=== PATIENT | male | born 1955 | race Caucasian/White ===

== ENCOUNTER 2024-08-24 13:47 | Outpatient (OUT) | payer MEDICARE, SELFPAY ==
[2024-08-24 14:19] LABS: Basophils Absolute Auto 0.1 10^3/uL (0.0-0.1); Basophils Percent Auto 0.5 % (0.2-2.0); Eosinophils Absolute Auto 0.2 10^3/uL (0.0-0.7); Eosinophils Percent Auto 1.8 % (0.9-7.0); Hematocrit 47.1 % (42.0-54.0); Hemoglobin 16.7 g/dL (14.0-18.0); Immature Granulocytes Abs Auto 0.03 10^3/uL (0.00-0.03); Immature Granulocytes Pct Auto 0.3 % (0.0-0.5); Lymphocytes Absolute Auto 1.7 10^3/uL (1.2-3.8); Lymphocytes Percent Auto 18.5 % (20.5-60.0); Mean Corpuscular HGB Conc 35.5 g/dL (29.9-35.2); Mean Corpuscular Hemoglobin 31.5 pg (25.9-34.0); Mean Corpuscular Volume 88.9 fL (80.0-94.0); Mean Platelet Volume 8.5 fL (9.5-13.5); Monocytes Absolute Auto 0.5 10^3/uL (0.3-0.8); Monocytes Percent Auto 5.7 % (1.7-12.0); Neutrophils Absolute Auto 6.9 10^3/uL (1.4-6.5); Neutrophils Percent Auto 73.2 % (43.0-75.0); Platelet Count 195 10^3/uL (150-450); Red Cell Distribution Width 13.2 % (11.0-15.0); White Blood Count 9.4 10^3/uL (4.0-11.0)
[2024-08-24 14:21] LABS: Estimated Average Glucose 160 mg/dL; Glycohemoglobin A1C 7.2 % (4.5-6.2)
[2024-08-24 14:38] LABS: Alanine Aminotransferase 20 U/L (16-63); Albumin Globulin Ratio 1.2; Albumin Level 3.8 g/dL (3.4-5.0); Alkaline Phosphatase 98 U/L (46-116); Anion Gap 11.1; Aspartate Amino Transferase 15 U/L (15-37); BUN Creatinine Ratio 9.3; Bilirubin Total 1.5 mg/dL (0.2-1.0); Calcium 9.1 mg/dL (8.5-10.1); Carbon Dioxide 30.7 mmol/L (21.0-32.0); Chloride 101 mmol/L (98-107); Chol HDL Ratio 3.3; Cholesterol 145 mg/dL (<=200); Estimated GFR (African America >60 (>=60 mL/min/1.73m^2); Estimated GFR (Non-African Ame 50 (>=60 mL/min/1.73m^2); Free T3 2.56 pg/mL (2.18-3.98); Globulin 3.1 g/dL; Glucose 115 mg/dL (74-106); HDL Cholesterol 44 mg/dL (40-60); Potassium 3.8 mmol/L (3.5-5.1); Sodium 139 mmol/L (136-145); Thyroid Stimulating Hormone 1.288 uIU/mL (0.358-3.740); Total Protein 6.9 g/dL (6.4-8.2); Triglycerides 90 mg/dL (<=150)
[2024-08-24 15:19] LABS: Prostate Specific Antigen Scrn 4.36 ng/mL (<=4.00)
== END 2024-08-24 13:48 | disposition home or self-care (01) ==
LOC: LAB 13:51
PROVIDERS: PCP Family Medicine; Visit Provider Family Medicine
DX: E78.00 Pure hypercholesterolemia, unspecified (principal); I10 Essential (primary) hypertension; E11.9 Type 2 diabetes mellitus without complications; R60.9 Edema, unspecified; Z12.5 Encounter for screening for malignant neoplasm of prostate
CPT/HCPCS: 36415; 80053; 80061; 83036; 84436; 84443; 84481; 85025; G0103

== ENCOUNTER 2025-06-01 08:04 | Outpatient (OUT) | payer MEDICARE, SELFPAY ==
--- OUTSIDE RECORDS SUMMARY | 2025-05-31 08:00 | XMS_ITS ---
Author Organization [facility] in [place] Address [address] [place] [address] Care Team Providers Care Animal Nutritionist Name Role Phone Natanael Nielsen Primary Care Provider [phone] Allergies No Known Allergies REASON FOR VISIT 3 month f/u Medications Medication SIG (Take, Route, Frequency, Duration) Notes Start Date End Date Status Metoprolol Tartrate 25 MG 1 tablet with food Orally Twice a day; Duration: 90 days 5ActiveAtorvastatin Calcium 40 MG1 tablet Orally at bedtime; Duration: 90 days5ActivehydroCHLOROthiazide 25 MG1 tablet Orally every morning; Duration: 90 days5ActiveGlucose Meter Test -Use strip with meter In Vitro to test blood sugar daily DX: E11.9; Duration: 90 days5Active Glucose Meter check blood sugar daily; Duration: 365 days dx E11.9 5ActivemetFORMIN HCl 1000 MG1 tablet with a meal Orally twice daily; Duration: 90 days5ActiveLosartan Potassium 50 MG1 tablet Orally Once a day; Duration: 90 days5ActiveLancets 33G -Use to test blood sugars once a day- DX: e11.9; Duration: 90 days5Active Social History Tobacco Use: Social History Observation Description Date Details (start date - stop date) Current Smoker 07/29/1971 - NA Tobacco Control (Standard) Question Answer Notes Tobacco use: Current smoker When did you start smoking?07/29/1971How often do you smoke cigarettes?Some days, but not every dayHow many cigarettes a day do you smoke?5 or less Additional Findings: Tobacco userCigar smokerSection Notes: Occasional Cigar smoker Vital Signs Weight 251.4 lbs 05/31/2025 Height 67 in 05/31/2025 Blood pressure systolic 138 mm Hg 05/31/20 25 Blood pressure diastolic 80 mm Hg 025 BMI 39.37 kg/m2 05/31/2025 Encounters Encounter Location Date Provider Diagnosis [facility] [address] [facility] [place] [address] 05/31/2025 Natanael Nielsen Hypertension I10 ; Diabetes mellitus E11.9 and Edema R60.9 Assessments Encounter Date Diagnosis (ICD Code) Assessment Notes Treatment Notes Treatment Clinical Notes Section Notes 05/31/2025 Hypertension (ICD-10 - I10) 05/31/2025Diabetes mellitus (ICD-10 - E11.9)05/31/2025Edema (ICD-10 - R60.9) Plan Of Treatment Pending Test Test Name Order Date HEMOGLOBIN A1C (GLYCO) 05/31/2025 LIPID PANEL (CHOL/TRIG/HDL/LDL) 05/31/20 25 URIC ACID 05/31/2025 THYROID PANEL (T4/TSH/FREE T3) PSA, SCREENING 05/31/2025 CMP (COMP MET LANE) w/eGFR CKD-EPI 2024 CBC WITH DIFF 05/31/2025 Progress Notes * MAR GUZMANOB:1955 (69 yo M)Acc No.[id number]:05/31/2025 UNLOCKED PROGRESS NOTE Progress Note Patient: JESSICA HARRELL :?Celso Nielsen ([facility]), MDDOB:1955???Age: 69 Y???Sex:MaleDate:05/31/2025Phone:[phone]:[address] [facility], [address], [place], [id number] In:12:59 PM ESTCheck Out:01:16 PM EST Subjective: * Chief Complaints: * 1 . 3 month f/u. * HPI: ???General:? DM - Sugar running 100's - disucssed diet HTN - stabel on meds Edema astable disc usedd flu vaccine. ???Interim History:? Patient presents for high blood pressure check. Doing well on medication. Denies chest pain, palpitations, lightheadedness, or vision changes. * ROS: ???General/Constitutional:?Lightheadedness?denies.?Fever?denies.?Headache?denies.?Cardiovascular:?Chest pain?denies.?Palpitations?denies.?Respiratory:?Cough?denies.?Shortness of breath?denies.? * Medical History: H ypertension, Hypercholesteremia. * Surgical History: M eniscus Repair- Right knee , Ganglion right wrist . * Hospitalization/Major Diagno stic Procedure: C ellulitis- Left lower extremity . * Family History: F ather: , Liver Cancer, diagnosed with Cancer. M other: . B rother(s): Arthritis. 2 brother(s) - healthy. . Father when patient was 8. * Social History: ???Tobacco Use:?Tobacco Control (Standard)?Tobacco use:?Current smoker ?When did you start smoking??07/29/1971 ?How often do you smoke cigarettes??Some days, but not every day ?How many cigarettes a day do you smoke??5 or less ?Additional Findings: Tobacco user?Cigar smoker ???Occasional Cigar smoker. * Medications: T aking Atorvastatin Calcium 40 MG Tablet 1 tablet Orally at bedtime , Taking Glucose Meter check blood sugar daily dx E11.9, Taking Glucose Meter Test(Glucose Blood) - Strip Use strip with meter In Vitro to test blood sugar daily DX: E11.9 , Taking hydroCHLOROthiazide 25 MG Tablet 1 tablet Orally every morning , Taking Lancets 33G(Lancets) - Miscellaneous Use to test blood sugars once a day- DX: e11.9 , Taking Losartan Potassium 50 MG Tablet 1 tablet Orally Once a day , Taking metFORMIN HCl 1000 MG Tablet 1 tablet with a meal Orally twice daily , Taking Metoprolol Tartrate 25 MG Tablet 1 tablet with food Orally Twice a day , Medication List reviewed and reconciled with the patient * Allergies: N .K.D.A. Objective: * Vitals: W t:251.4lbs, Ht: 67 in, BP:138/80mm Hg, BMI:39.37Index, Ht-cm: 170.18 cm, Wt-k.03 kg. * Examination: ???General Examination: ?GENERAL APPEARANCE:? in no acute distress, well developed,well nourished.?LUNGS:? clear to auscultation bilaterally.?CARDIO:? regular rate and rhythm, S1, S2 normal, no murmurs.? Assessment: * Assessment: 1.?Hypertension - I10 (Primary)???2.?Diabetes mellitus - E11.9?? 3.?Edema - R60.9??? Plan: * Treatment: ?LAB: HEMOGLOBIN A1C (GLYCO) ?LAB: LIPID PANEL (CHOL/TRIG/HDL/LDL) ?LAB: URIC ACID ?LAB: THYROID PANEL (T4/TSH/FREE T3) ?LAB: PSA, SCREENING ?LAB: CMP (COMP MET LANE) w/eGFR CKD-EPI ?LAB: CBC WITH DIFF2.?Diabetes mellitus?LAB: HEMOGLOBIN A1C (GLYCO) ?LAB: LIPID PANEL (CHOL/TRIG/HDL/LDL) ?LAB: URIC ACID ?LAB: THYROID PANEL (T4/TSH/FREE T3) ?LAB: PSA, SCREENING ?LAB: CMP (COMP MET LANE) w/eGFR CKD-EPI ?LAB: CBC WITH DIFF3.?Edema?LAB: HEMOGLOBIN A1C (GLYCO) ?LAB: LIPID PANEL (CHOL/TRIG/HDL/LDL) ?LAB: URIC ACID ?LAB: THYROID PANEL (T4/TSH/FREE T3) ?LAB: PSA, SCREENING ?LAB: CMP (COMP MET LANE) w/eGFR CKD-EPI ?LAB: CBC WITH DIFF * Preventive Medicine: ??Screenings/Counseling:?BMI ACTION PLAN?Above Normal BMI Follow-up?Dietary management education, guidance, and counseling * * Electronic signature of Natanael Nielsen MD, [phone] on 06/01/2025 at 08:10 AM EST Sign off status: PendingVisit Status:?CHK (Check Out) * Provider: Jesus Nielsen (TTC)MD Date: 1 08/01/2024 Generated for Printing/Faxing/eTransmitting on:?06/01/2025 08:10 AM EST History and Physical Notes * HPI (History of Present Illness) CategorySub-CategoryDetailNotesCategory NotesGeneral DM - Sugar running 100's - disucssed diet HTN - stabel on meds Edema astable disc usedd flu vaccine Examination CategorySub-CategoryDetailNotesCategory NotesGeneral ExaminationGENERAL APPEARANCE:in no acute distress, well developed, well nourishedCARDIO:regular rate and rhythm, S1, S2 normal, no murmursLUNGS:clear to auscultation bilaterally
--- OUTSIDE RECORDS SUMMARY | 2025-06-01 08:10 | XMS_ITS | Patient Health Record ---
Author Organization [facility] in [place] Address [address] [place] [address] Care Team Providers Care Swift Tender Name Role Phone Natanael Nielsen Primary Care Provider Allergies No Known Allergies Reason For Referral No Information Medications Medication SIG (Take, Route, Frequency, Duration) Notes Start Date End Date Status Metoprolol Tartrate 25 MG 1 tablet with food Orally Twice a day; Duration: 90 days 5ActivemetFORMIN HCl 1000 MG1 tablet with a meal Orally twice daily; Duration: 90 days5ActiveLosartan Potassium 50 MG1 tablet Orally Once a day; Duration: 90 days5ActiveLancets 33G -Use to test blood sugars once a day- DX: e11.9; Duration: 90 days5ActiveAtorvastatin Calcium 40 MG1 tablet Orally at bedtime; Duration: 90 days5ActivehydroCHLOROthiazide 25 MG1 tablet Orally every morning; Duration: 90 days5ActiveGlucose Meter Test -Use strip with meter In Vitro to test blood sugar daily DX: E11.9; Duration: 90 days5ActiveGlucose Meter check blood sugar daily; Duration: 365 days dx E11.9 5Active Social History Tobacco Use: Social History Observation Description Date Details (start date - stop date) Current Smoker 07/29/1971 - NA Tobacco Control (Standard) Question Answer Notes Tobacco use: Current smoker When did you start smoking?07/29/1971How often do you smoke cigarettes?Some days, but not every dayHow many cigarettes a day do you smoke?5 or less Additional Findings: Tobacco userCigar smokerAUDIT-C (Standard) Question Answer Notes Did you have a drink containing alcohol in the p ast year? No Bsemlv1TfwterpmdcgnbfHodncjuqXjlmrqq Notes: Occasional Cigar smoker Occasional Cigar smoker Occasional Cigar smoker Occasional Cigar smoker Problems Problem Type SNOMED Code ICD Code Onset Dates Problem Status W/U Status Risk Notes Problem Morbid obesity (disorder) (23331 6002) Morbid (severe) obesity due to excess calories (E66.01) ActiveconfirmedProblemHypertension (95973865)Hypertension (I10)Activeconfirmed ProblemEdema (75574246)Edema (R60.9)ActiveconfirmedProblemEssential tremor (964968707)Familial tremor (G25.0)ActiveconfirmedProblemhypercholesterolemia (disorder) (31229110)Hypercholesteremia (E78.00)ActiveconfirmedProblemDiabetes mellitus (52408002)Diabetes mellitus (E11.9)Activeconfirmed Vital Signs Blood pressure diastolic 80 mm Hg 05/31/2025 Pwkwts26 in05/31/2025lood pressure porgqkgw826 mm Hg05/31/20255188Ftfhfq994.4 lbs 05/31/2025BMI39.37 kg/m205/31/2025 Encounters Encounter Location Date Provider Diagnosis [address] [address] 08/24/2024 Natanael Hoy Hypercholesteremia E 78.00 ; Hypertension I10 ; Diabetes mellitus E11.9 and Edema R60.[address] [address] 11/22/2024 Natanael Hoy Hypertension I10 ; Hypercholesteremia E78.00 ; Diabetes mellitus E11.9 ; Edema R60.9 and Familial tremor G25.[address] [address] 02/21/2025 Natanael Hoy Morbid (severe) obes ity due to excess calories E66.01 ; Hypertension I10 ; Hypercholesteremia E78.00 and Diabetes mellitus E11.[address] [address] 05/31/2025 Natanael Hoy Hypertension I10 ; D iabetes mellitus E11.9 and Edema R60.[address] [place] [address] 08/24/2024 Natanael Nielsen Hypercholesteremia E 78.00 and Diabetes mellitus E11.9 [facility] [address] [place] [address] 08/31/2024 Natanael Palaciosy [facility] [place] [address] 12/15/2024[facility]Di[facility] [place] [address]/24/2025Doug HoyDiabetes mellitus E11.9 [facility] [place] [address] 12/21/2024Doug HoyDiabetes mellitus E11.9 Assessments Encounter Date Diagnosis (ICD Code) Assessment Notes Treatment Notes Treatment Clinical Notes Section Notes 08/24/2024 Hypercholesteremia (ICD-10 - E78 .00) 08/24/2024Hypertension (ICD-10 - I10)11/22/2024Hypertension (ICD-10 - I10) workign on salt and emhmxahe58/28/2025Hypercholesteremia (ICD-10 - E78.00)no Se from ssfhld9702/21/2025Morbid (severe) obesity due to excess calories (ICD-10 - E66.01)working on diet02/21/2025Hypertension (ICD-10 - I10)stabel - at home - 05/31/2025Hypertension (ICD-10 - I10)05/31/2025Diabetes mellitus (ICD-10 - E11.9)08/24/2024Hypercholesteremia (ICD-10 - E78.00)12/15/2024Diabetes mellitus (ICD-10 - E11.9)2024Diabetes mellitus (ICD-10 - E11.9)12/21/2024Diabetes mellitus (ICD-10 - E11.9)08/24/2024Diabetes mellitus (ICD-10 - E11.9)05/31/2025 Edema (ICD-10 - R60.9)02/21/2025Hypercholesteremia (ICD-10 - E78.00)no SE from meds11/22/2024Diabetes mellitus (ICD-10 - E11.9)will start eqyzhmst17/27/2025 Diabetes mellitus (ICD-10 - E11.9)08/24/2024Edema (ICD-10 - R60.9)11/22/2024 Edema (ICD-10 - R60.9)comression hose jpxywyn2202/21/2025Diabetes mellitus (ICD-10 - E11.9)110's011/22/2024Familial tremor (ICD-10 - G25.0) Plan Of Treatment Pending Test Test Name Order Date HEMOGLOBIN A1C (GLYCO) 05/31/2025 HEMOGLOBIN A1C (GLYCO) 08/24/2024 LIPID PANEL (CHOL/TRIG/HDL/LDL) 05/31/20 25 LIPID PANEL (CHOL/TRIG/HDL/LDL) 08/24/19 25 CBC WITH DIFF (EXP 04/2025) 08/24/2024 URIC ACID 05/31/2025 THYROID PANEL (T4/TSH/FREE T3) 5 THYROID PANEL (T4/TSH/FREE T3) PSA, SCREENING 08/24/2024 PSA, SCREENING 05/31/2025 CMP (COMP MET LANE) w/eGFR CKD-EPI 2024 CMP (COMP MET LANE) w/eGFR CKD-EPI 2024 CBC WITH DIFF 05/31/2025 Insurance Providers Payer Name Payer Address Payer Phone Subscriber Number Group Number Insured Name Patient Relationship to Insured Coverage Start Date Coverage End Date [employer] MED[employer] [address] [place], [place] [id number] Halie GUZMAN - patient is the insured Medical (General) History Medical History History ICD Code Hypertension I10 Hypercholesteremia E78.00 Surgical History Surgery Date(Month/Year) Ganglion right wrist Meniscus Repair- Right kneeHospitalization History Reason Date(Month/Year) Cellulitis- Left lower extremity
--- OUTSIDE RECORDS SUMMARY | 2025-06-01 08:10 | XMS_ITS | Clinical Summary ---
Author Organization [facility] Address [address] [facility] [place] [address] Care Team Providers Care Sole Conditioner Name Role Phone Unavailable Primary Care Provider Unavailabl e Allergies No known active allergies Medications MedicationSigDispense QuantityRefillsLast FilledStart DateEnd DateStatus atorvastatin (Lipitor) 40 MG tablet TAKE 1 TABLET BY MOUTH EVERY DAY AT BEDTIME FOR 90 DAYSActive hydroCHLOROthiazide (HYDRODiuril) 25 MG tablet Take 25 mg by mouth in the morning.Active losartan (Cozaar) 50 MG tablet 1 (one) time each day at the same time5Active metoprolol tartrate (Lopressor) 25 MG tablet TAKE 1 TABLET BY MOUTH TWICE A DAY WITH FOOD FOR 90 DAYSActive Noqygdtbbff-Vegvgljm-Xxvvzxraa 1-0.5-0.075 % solution Indications:Age-related nuclear cataract of left eyeAdminister 1 drop into affected eye(s) in the morning and 1 drop at noon and 1 drop in the evening and 1 drop before bedtime. 10 mL 5Active metFORMIN (Glucophage) 1000 MG tablet 1 tablet with a meal Orally twice daily; Duration: 90 days5Active Active Problems ProblemNoted DateDiagnosed BjayFdrxumrkemze56/19/2025Right posterior capsular vimnbqfupkjea57/30/2025 Resolved Problems ProblemNoted DateDiagnosed DateResolved DateAge-related nuclear cataract of left eye Encounters DateTypeDepartmentCare XukuYahppqekdgd50/19/2025 3:00 PM ESTOffice Visit [facility] [address] [place] [address] Felipe Wincehster, DO Pseudophakia (Primary Dx)05/16/20251138Kmnlcl10/03/2025Orders Only [facility] [address] [place] [address] Felipe Winchester DO Age-related nuclear cataract of both eyes04/26/2025 3:00 PM EDTOffice Visit [facility] [address] [place] [address] Felipe Winchester DO Age-related nuclear cataract of left eye (Primary Dx); Right posterior capsular lbdabzsxdzdak04/30/2025amboo flowsheet [facility] [address] [place] [address] Felipe Winchester DO 04/26/2025Travelfrom Last 3 Months Social History Tobacco UseTypesPacks/DayYears UsedDateSmoking Tobacco: NeverSmokeless Tobacco: Never Tobacco Cessation:Counseling Given: Not Answered Sex and Gender InformationValueDate RecordedSex Assigned at BirthNot on file Legal DulRswq6309/09/2022 6:48 PM EDTGender IdentityNot on fileSexual Orientation Not on file Plan of Treatment Health MaintenanceDue DateLast DoneCommentsCT Rryamjbjrsqv50/24/1954Colonoscopy 1955olorectal Cancer Fqmjdxxlt31/24/1954FIT-DNA1955FIT1955 FOBT1955 6759Audxbimzhhphl77/24/1954OVID-19 Vaccine ( season) , 11/11/2020, 10/21/2020Influenza VaccineCompleted 02/22/2025, 03/07/2024, 03/09/2023, Additional history existsPneumococcal Vaccine: 65+ EvhlqIlptfgnxp14/28/2025, 03/03/2020 Procedures Procedure NamePriorityDate/TimeAssociated DiagnosisCommentsIOL BIOMETRY - OU - BOTH DMZIWcvucpg41/30/2025 3:18 PM EDT Age-related nuclear cataract of left eye from Last 3 Months Results * IOL Biometry - OU - Both Eyes (CPT 03583) (04/26/2025 3:18 PM EDT)Anatomical RegionLateralityModalityHeadOtherSpecimen (Source)Anatomical Location / LateralityCollection Method / VolumeCollection TimeReceived Time Narrative 04/26/2025 3:18 PM EDT Diagnosis: Cataract both eyes (OU) Testing Indication: Performed for preop measurements in the determination of an intraocular lens (IOL) for both eyes (OU) ?? Test Reliability: Good quality both eyes (OU) Interpretation: Good measurements for intraocular lens (IOL) calculation purposes. Calculation made for both eyes (OU). ?? Authorizing ProviderResult TypeResult StatusFelipe NÚÑEZ ULTRASOUND Final Result from Last 3 Months Insurance
--- OUTSIDE RECORDS SUMMARY | 2025-06-01 08:10 | XMS_ITS | CCD ---
Author Organization [facility] Care Team Providers Care Drawer Maker Name Role Phone DIAB ., JADE Admitting Unavailable DIAB ., JADE Attending Unavailable ALBINO MARQUEZ Consulting Unavailable FAWWAD, METZ H Primary Care Unavailable DIAB ., JADE Consulting Unavailable FAWWAD, METZ H Attending Unavailable FAWWAD, METZ H Admitting Unavailable FAWWAD, METZ H Primary Care Unavailable FAWWAD, METZ H Consulting Unavailable FAWWAD, METZ H Attending Unavailable FAWWAD, METZ H Admitting Unavailable FAWWAD, METZ H Primary Care Unavailable FAWWAD, METZ H Consulting Unavailable Unavailable Primary Care Provider UnavailLYLY Michel Attending Unavailable AGATHA SANABRIA Referring Unavailable Medications Current Medications MedicationDrug Class(es)DatesSig (Normalized)Sig (Original)atorvastatin 40 mg oral tablet (1 source)HMG-CoA Reductase Inhibitortake 1 tablet by mouth once daily at bedtimeatorvastatin (Lipitor) 40 MG tablet TAKE 1 TABLET BY MOUTH EVERY DAY AT BEDTIME FOR 90 DAYS ActivehydroCHLOROthiazide 25 mg oral tablet (1 source)Thiazide Diuretictake 1 tablet by mouth in the morning hydroCHLOROthiazide (HYDRODiuril) 25 MG tablet Take 25 mg by mouth in the morning. Activelosartan potassium 50 mg oral tablet (1 source)Angiotensin 2 Receptor BlockerStart: 22-97-5814njvhzlzw (Cozaar) 50 MG tablet 1 (one) time each day at the same time 08/24/2024 ActivemetFORMIN hydrochloride 1000 mg oral tablet (1 source)BiguanideStart: 89-03-3973cvzl 1 tablet by mouth twice dailymetFORMIN (Glucophage) 1000 MG tablet 1 tablet with a meal Orally twice daily; Duration: 90 days 08/24/2024 Activemetoprolol tartrate 25 mg oral tablet (1 source)beta-Adrenergic Blockertake 1 tablet by mouth twice daily at mealtime metoprolol tartrate (Lopressor) 25 MG tablet TAKE 1 TABLET BY MOUTH TWICE A DAY WITH FOOD FOR 90 DAYS FpotkhKkzflfohcvx-Uymobhbi-Wzygrgtsc 1-0.5-0.075 % solution (1 source)Start: 90-73-7908Kxbctvoamhh-Moxiflox-Bromfenac 1-0.5-0.075 % solution Indications: Age-related nuclear cataract of left eye Administer 1 drop into affected eye(s) in the morning and 1 drop at noon and 1 drop in the evening and 1 drop before bedtime. 10 mL 1 04/26/2025 Active Problems Active Problems Problem ClassificationProblemDateDocumented DateEpisodic/ChronicCataract (4 sources)Age-related nuclear cataract of left eye; Translations: [Age-related nuclear cataract, left eye]Onset: [id number] mellitus without complication (4 sources)Type 2 diabetes mellitus without complications; Translations: [TYPE 2 DM WITHOUT COMPLICATIONS]Onset: 87-30-9712KveobwdAqfljdwe mellitus without complication (1 source)Prediabetes; Translations: [PREDIABETES]Onset: 47-91-0031Umrnozke Disorders of lipid metabolism (1 source)Hyperlipidemia, unspecified; Translations: [HYPERLIPIDEMIA UNSPECIFIED]Onset: 58-04-3505TtsvqzsG Codes: Fall (1 source)Fall on same level from slipping, tripping and stumbling without subsequent striking against object, initial encounter; Translations: [FALL SAME LVL SLIP NO STRK OBJ INIT]Onset: 66-62-7758AppbczsqBnkqtdksi hypertension (1 source)Essential (primary) hypertension; Translations: [ESSENTIAL PRIMARY HYPERTENSION]Onset: 58-90-8303BhzlzajUhrvu aftercare (1 source)halfway (current) use of oral hypoglycemic drugs; Translations: [FOUR H CLUB AGENT USE ORAL HYPOGLYCEMIC DX]Onset: 02-60-7440HjzqvuuhHyytm non-traumatic joint disorders (4 sources)Pain in right knee; Translations: [PAIN IN RIGHT KNEE]Onset: 10-87-3697HqvdwoxwOycvtivav-related disorders (1 source)Nicotine dependence, cigarettes, uncomplicated; Translations: [NICOTINE DEPEND CIGARETTES UNCOMP]Onset: 11-52-4151WoqekkoOioqbxmetpe injury; contusion (1 source)Contusion of right knee, initial encounter; Translations: [CONTUSION RIGHT KNEE INITIAL ENC]Onset: 08-64-8118Timxncpn Past or Other Problems Problem ClassificationProblemDateDocumented DateEpisodic/ChronicOther screening for suspected conditions (not mental disorders or infectious disease) (4 sources)Other specified abnormal findings of blood chemistry; Translations: [OTH SPEC ABNORMAL FINDINGS BLDCHEM]Onset: 65-23-0094Fuywcfls Results Test NameValueInterpretationReference RangeFacilityUS Eye+Orbit - bilateralon 21-48-1152Veubvbgka: Cataract both eyes (OU) Testing Indication: Performed for preop measurements in the determination of an intraocular lens (IOL) for both eyes (OU) Test Reliability: Good quality both eyes (OU) Interpretation: Good measurements for intraocular lens (IOL) calculation purposes. Calculation made for both eyes (OU).[facility] Study observation (narrative)[facility]XR [facility] 4V or >on 47-47-7509LK KNEE RT 4V or >EXAM: XR KNEE RT 4V or > INDICATION: Pain of joint of knee. COMPARISON: None. TECHNIQUE: Right knee, 5 views FINDINGS: No acute fracture or dislocation. Moderate medial compartment and mild lateral compartment and patellofemoral joint space narrowing. Tricompartment osteophyte formation. Meniscal chondrocalcinosis. No suprapatellar joint effusion. Vascular calcifications noted. IMPRESSION: 1. No acute osseous abnormality. 2. Mild to moderate right knee osteoarthrosis. Electronically authenticated by: ALBINO MARQUEZ Date: 2022-11-21 10:22NormOhioHealth Van Wert HospitalPROF CHEM 8 (BAS METB)on 36-51-5603Biulj gap [Moles/Vol]9.5 mmol/LNormalThe [facility], AvonComment on above:Performed By: #### BMP #### [facility] [address] [address] [address] Soni VillaCalcium [Mass/Vol]9.4 mg/dLNormal8.5-10.1The [facility] Comment on above:Performed By: #### BMP #### [facility] [address] [address] [address] Soni VillaChloride [Moles/Vol]99 mmol/QZcwjvb74-100Gbe [facility] Comment on above:Performed By: #### BMP #### [facility] [address] [address] [address] Soni VillaCO2 [Moles/Vol]32.5 mmol/LCritically high21.0-32.0The [facility], AvonComment on above:Performed By: #### BMP #### [facility] [address] [address] [address] Soni VillaCreatinine [Mass/Vol]1.50 mg/dLCritically high0.70-1.30The [facility] AvonComment on above:Performed By: #### BMP #### [facility] [address] [address] [address] Shafer ChangEGFR-AF KVWMOQPI33 mL/min/1.97g6Gjzbiqbwkn low>=60The [facility], AvonComment on above:Performed By: #### BMP #### [facility] [address] [address] [address] Soni GageGFR-NON AF ALXZPQMI97 mL/min/1.04n6Wvkvfktsdk low>=60The [facility] AvonComment on above:Performed By: #### BMP #### [facility] [address] [address] [address] Soni VillaGlucose [Mass/Vol]115 mg/dLCritically ajyr67-843Otw [facility] AvonComment on above:Performed By: #### BMP #### [facility] [address] [address] [address] Soni VillaPotassium [Moles/Vol]4.0 mmol/LNormal3.5-5.1[facility] Comment on above:Performed By: #### BMP #### [facility] [address] [address] [address] Soni VillaSodium [Moles/Vol]137 mmol/ZVrbvkz818-911Bch [facility] Comment on above:Performed By: #### BMP #### [facility] [address] [address] [address] Soni VillaUrea nitrogen [Mass/Vol]19.0 mg/dLCritically high7.0-18.0The [facility] AvonComment on above:Performed By: #### BMP #### [facility] [address] [place] [address] Dr. Soni VillaUrea nitrogen/Creatinine [Mass ratio]12.7 mg/mgNormalThe [facility], AvonComment on above:Performed By: #### BMP #### [facility] [address] [place] [address] Dr. Soni VillaMICROALBUMIN/ CREATININE RATIOon 38-27-9908Sebnjkr, Urine7.6 ug/mLNormalNot Estab.The [facility], AvonComment on above:Performed By: #### MALBCRL #### [facility] [address] [place] [address] Dr. Soni VillaAlbumin/ Creatinine Ratio6 mg/g creatNormal0-29The [facility], AvonComment on above:Result Comment: Normal: 0 - 29 Moderately increased: 30 - 300 Severely increased: >300Performed By: #### MALBCRL #### [facility] [address] [place] [address] Dr. Soni VillaCreatinine, Mvjbh992.3 mg/dLNormalNot Estab.The [facility] Comment on above:Performed By: #### MALBCRL #### [facility] [address] [place] [address] Dr. Soni VillaCBC AUTO DIFFon 86-24-9558UATB #0.0 103/ulNormal0.0-0.1The [facility], AvonComment on above:Performed By: #### CBC #### [facility] [address] [place] [address] Dr. Soni VillaBasophils/100 WBC (Bld)0.5 %Normal0.2-2.0The [facility] Comment on above:Performed By: #### CBC #### [facility] [address] [address] [address] Soni Louise #0.2 103/ulNormal0.0-0.7The [facility], AvonComment on above: Performed By: #### CBC #### [facility] [address] [place] [address] Dr. Soni Gageosinophils/100 WBC (Bld)2.0 %Normal0.9-7.0The [facility] Comment on above:Performed By: #### CBC #### [facility] [address] [place] [address] Dr. Soni Gagerythrocyte distribution width (RBC) [Ratio]13.2 %Nhnqvo29.0-15.0 The [facility], AvonComment on above:Performed By: #### CBC #### [facility] [address] [place] [address] Dr. Soni VillaHematocrit (Bld) [Volume fraction]42.7 %Kkcsnh71.0-54.0The [facility] AvonComment on above:Performed By: #### CBC #### [facility] [address] [place] [address] Dr. Soni VillaHemoglobin (Bld) [Mass/Vol]14.7 g/bDUqacsr08.0-18.0The [facility], AvonComment on above:Performed By: #### CBC #### [facility] [address] [place] [address] Dr. Soni Valdivia #0.04 10e3/ulCritically high0.00-0.03The [facility] Comment on above:Performed By: #### CBC #### [facility] [address] [place] [address] Dr. Soni Valdivia %0.5 %Normal0.0-0.5The [facility], AvonComment on above: Performed By: #### CBC #### [facility] [address] [place] [address] Dr. Soni CorderoH #1.6 103/ulNormal1.2-3.8The [facility], AvonComment on above:Performed By: #### CBC #### [facility] [address] [place] [address] Dr. Soni Cardenasmphocytes/100 WBC (Bld)21.4 %Wbsczz47.5-60.0The [facility] Hospitalment on above:Performed By: #### CBC #### [facility] [address] [place] [address] Dr. Soni FigueredoUAL DIFF REQNONormalThe [facility], AvonComment on above: Performed By: #### CBC #### [facility] [address] [place] [address] Dr. Soni Patrick (RBC) [Entitic mass]30.9 viGugyfs42.9-34.0The [facility], AvonComment on above:Performed By: #### CBC #### [facility] [address] [place] [address] Dr. Soni Patrick (RBC) [Mass/Vol]34.4 g/cYWbdskn55.9-35.2The [facility] AvonComment on above:Performed By: #### CBC #### [facility] [address] [place] [address] Dr. Soni Patrick (RBC) [Entitic vol]89.9 bZFxvgde43.0-94.0The [facility], AvonComment on above:Performed By: #### CBC #### [facility] [address] [place] [address] Dr. Soni Odonnell #0.5 103/ulNormal0.3-0.8The [facility], AvonComment on above:Performed By: #### CBC #### [facility] [address] [place] [address] Dr. Soni Fletcherocytes/100 WBC (Bld)7.0 %Normal1.7-12.0The [facility] Comment on above:Performed By: #### CBC #### [facility] [address] [place] [address] Dr. Soni Bee #5.3 103/ulNormal1.4-6.5The [facility], AvonComment on above:Performed By: #### CBC #### [facility] [address] [address] [address] Soni VillaNeutrophils/100 WBC (Bld)68.6 %Lrixse00.0-75.0The [facility]onComapex medical center on above:Performed By: #### CBC #### [facility] [address] [address] [address] Soni VillaPlatelet mean volume (Bld) [Entitic vol]8.7 fLCritically low 9.5-13.5The [facility], AvonComment on above:Performed By: #### CBC #### [facility] [address] [place] [address] Dr. Soni VillaPLT200 103/muYafcmk421-618Bco [facility] on above: Performed By: #### CBC #### [facility] [address] [place] [address] Dr. Soni VillaRBC4.75 106/ulNormal4.70-6.10The [facility]onComapex medical center on above:Performed By: #### CBC #### [facility] [address] [place] [address] Dr. Soni VillaWBC7.7 103/ulNormal4.0-11.0The [facility] on above: Performed By: #### CBC #### [facility] [address] [place] [address] Dr. Soni VillaGLYCOHEMOGLOBIN A1Con 97-13-8959JFH RECOMMENDATIONSEE BELOWNormal The [facility]onComape[facility] on above:Result Comment: ADA RECOMMENDED LIMIT 4.0 - 6.0 ADA THERAPEUTIC TARGET < 7.0 ACTION SUGGESTED > 7.0Performed By: #### A1C #### [facility] [address] [place] [address] Dr. Soni VillaGlucose [Mass/Vol]126 mg/dLNormalThAvita Health System Bucyrus HospitalComapex medical center on above:Performed By: #### A1C #### [facility] [address] [place] [address] Dr. Soni VillaHbA1c (Bld) [Mass fraction]6.0 %Normal4.5-6.2[facility] HospitalComment on above:Performed By: #### A1C #### [facility] [address] [address] [address] Soni DashID PROFILEon 99-63-2758AOBD-HDL RATIO NORMSEast Ohio Regional HospitalComment on above:Result Comment: 3.3 - 4.4 LOW RISK 4.4 - 7.1 AVERAGE RISK 7.1 - 11.0 MODERATE RISK >11.0 HIGH RISKPerformed By: #### LIPID, CMP #### [facility] [address] [address] [address] Soni VillaCholesterol [Mass/Vol]111 mg/dLNormal<=200The [facility] Comment on above:Performed By: #### LIPID, CMP #### [facility] [address] [address] [address] Soni VillaCholesterol in HDL [Mass/Vol]38 mg/dLCritically ees04-51Mlx [facility] AvonComment on above:Performed By: #### LIPID, CMP #### [facility] [address] [address] [address] Soni VillaCholesterol in LDL [Mass/Vol]56.0 mg/dLKnox Community HospitalComment on above:Performed By: #### LIPID, CMP #### [facility] [address] [address] [address] Soni Reyesesterkari.total/Cholesterol in HDL [Mass ratio]2.9 {ratio} NormalThe [facility], AvonComment on above:Performed By: #### LIPID, CMP #### [facility] [address] [address] [address] Soni VillaHDL NORMAL> or = 60 mg/dl - LOW CARDIOVASCULAR RISK <40 mg/dl - HIGH CARDIOVASCULAR RISKKnox Community HospitalComment on above:Performed By: #### LIPID, CMP #### [facility] [address] [address] [address] Soni VillaLDL CALC NORMALSEE [facility] Orthopedic CenterComment on above:Result Comment: <100 mg/dl OPTIMAL 100 - 129 mg/dl NEAR OR ABOVE OPTIMAL 130 - 159 mg/dl BORDERLINE HIGH 160 - 189 mg/dl HIGH >190 mg/dl VERY HIGH Performed By: #### LIPID, CMP #### [facility] [address] [address] [address] Soni VillaTriglyceride [Mass/Vol]85 mg/dLNormal<=150The [facility] Comment on above:Performed By: #### LIPID, CMP #### [facility] [address] [address] [address] Soni VillaVLDL CALC17.0 mg/dLNoKeenan Private HospitalComment on above: Performed By: #### LIPID, CMP #### [facility] [address] [place] [address] Dr. Soni VillaPROF 14(COMP METB)on 81-03-5951Deckabp [Mass/Vol]3.6 g/dLNormal 3.4-5.0The [facility], AvonComment on above:Performed By: #### LIPID, CMP #### [facility] [address] [place] [address] Dr. Soni VillaAlbumin/Globulin [Mass ratio]1.2 {ratio}NormalThe [facility], AvonComment on above:Performed By: #### LIPID, CMP #### [facility] [address] [place] [address] Dr. Soni Alva [Catalytic activity/Vol]94 U/AXgryzt19-366Epe [facility], AvonComment on above:Performed By: #### LIPID, CMP #### [facility] [address] [place] [address] Dr. Soni Hastings [Catalytic activity/Vol]18 U/TVspfgy01-10Jji [facility] AvonComment on above:Performed By: #### LIPID, CMP #### [facility] [address] [place] [address] Dr. Soni Donald gap [Moles/Vol]11.8 mmol/LNormalThe [facility] Comment on above:Performed By: #### LIPID, CMP #### [facility] [address] [address] [address] Soni VillaAST [Catalytic activity/Vol]17 U/YHflyub51-95Ozo [facility], AvonComment on above:Performed By: #### LIPID, CMP #### [facility] [address] [address] [address] Soni VillaBilirubin [Mass/Vol]1.1 mg/dLCritically high0.2-1.0The [facility] AvonComment on above:Performed By: #### LIPID, CMP #### [facility] [address] [address] [address] Soni VillaCalcium [Mass/Vol]8.8 mg/dLNormal8.5-10.1The [facility] Comment on above:Performed By: #### LIPID, CMP #### [facility] [address] [address] [address] Soni VillaChloride [Moles/Vol]99 mmol/XTshwnf90-814Agv [facility] Comment on above:Performed By: #### LIPID, CMP #### [facility] [address] [address] [address] Soni VillaCO2 [Moles/Vol]27.5 mmol/ZZfyzbe33.0-32.0The [facility] Comment on above:Performed By: #### LIPID, CMP #### [facility] [address] [address] [address] Soni VillaCreatinine [Mass/Vol]1.33 mg/dLCritically high0.70-1.30The [facility] AvonComment on above:Performed By: #### LIPID, CMP #### [facility] [address] [address] [address] Shafer ChangEGFR-AF GUYANESE>60Normal>=60The [facility], AvonComment on above:Performed By: #### LIPID, CMP #### [facility] [address] [address] [address] Soni GageGFR-NON AF GKKSGECM89 mL/min/1.33s8Vkycupofqq low>=60The [facility] HospitalComment on above:Performed By: #### LIPID, CMP #### [facility] [address] [address] [address] Soni VillaGlobulin (S) [Mass/Vol]3.0 g/dLNormOhioHealth Van Wert HospitalComment on above:Performed By: #### LIPID, CMP #### [facility] [address] [address] [address] Soni VillaGlucose [Mass/Vol]102 mg/eFSozixj96-342Swr [facility] Comment on above:Performed By: #### LIPID, CMP #### [facility] [address] [address] [address] Soni VillaPotassium [Moles/Vol]4.3 mmol/LNormal3.5-5.1The [facility] Comment on above:Performed By: #### LIPID, CMP #### [facility] [address] [place] [address] Dr. Soni VillaProtein [Mass/Vol]6.6 g/dLNormal6.4-8.2The [facility] Comment on above:Performed By: #### LIPID, CMP #### [facility] [address] [place] [address] Dr. Soni VillaSodium [Moles/Vol]134 mmol/LCritically unl878-389Yrz [facility] [facility]onComment on above:Performed By: #### LIPID, CMP #### [facility] [address] [address] [address] Soni VillaUrea nitrogen [Mass/Vol]14.0 mg/dLNormal7.0-18.0The [facility] [place]onComment on above:Performed By: #### LIPID, CMP #### [facility] [address] [place] [address] Dr. Soni Jose nitrogen/Creatinine [Mass ratio]10.5 mg/mgNoKeenan Private HospitalComment on above:Performed By: #### LIPID, CMP #### [facility] [address] [place] [address] Dr. Soni Ibarra Reportson 19-47-8645Nbx Reports [id number]:[address] [place], [place] [address]RAD - CT Reporton 04-53-9236LLO - CT Report [id number]#[id number]:[address] [place], [place] [address]Formson [id number]:[address] [place], [place] [address]Physician Referralon 27-50-0396Ttoqvckpt [id number]:[address] [place], [place] [address]creenson 07-03-9481Wkcfqrv [id number]#1.00CD:[address] [place], [place] [address]Ambulatory Clinical Summaryon 19-08-5552Jtqsqcwvas Clinical Summary {09-32-d6-2p-57-5a-41-46-xg-es-4i-9w-1a-3a-1d-ab}CD:[id number] Health Allen HospitalPatient Educationon 26-29-5640Mddrsbn EducationBenign Prostatic Hyperplasia You have an enlarged prostate. This is common in elderly males. It is called BPH. This stands for benign prostate hyperplasia. The prostate gland is located in base of the bladder. When it grows, theprostate blocks the urethra. This is the tube which drains urine from the bladder. SYMPTOMS ? Weak urine stream. ? Dribbling. ? Feeling like the bladder has not emptied completely. ? Difficulty starting urination. ? Getting up frequently at night to urinate. ? Urinating more frequently during the day. Complete urinary blockage or severe pain with urination requires immediate attention. DIAGNOSIS ? Your caregiver often has a good idea what is wrong by taking a history and doing a physical exam. ? Special x-rays may be done. TREATMENT ? For mild problems, no treatment may be necessary. ? If the problems are moderate, medications may provide relief. Some of these work by making the prostate gland smaller. The herb saw palmetto is commonly used. ? If complete blockage occurs, a Davis catheter is usually left in place for a few days. ? Surgery is often needed for more severe problems. TURP is the prostate surgery for BPH which is done through the urethra. TURP stands for transurethral resection of the prostate. It involves cutting away chips from the prostate. It is done by removing chips so that they can come out through the penis. ? Techniques using heat, microwave and laser to remove the prostate blockage are also being used. HOME CARE INSTRUCTIONS ? Give yourself time when you urinate. ? Stay away from alcohol. ? Beverages containing caffeine such as coffee, tea and rashida can make the problems worse. ? Decongestants, antihistamines, and some prescription medicines can also make the problem worse. ? Follow up with your caregiver for further treatment as recommended. SEEK IMMEDIATE MEDICAL CARE IF: ? You develop increased pain with urination or are unable to pass your water. ? You develop severe abdominal pain, vomiting, a high fever, or fainting. ? You develop back pain or blood in your urine. MAKE SURE YOU: ? Understand these instructions. ? Will watch your condition. ? Will get help right away if you are not doing well or get worse. Document Released: 06/14/2006 Document Revised: 09/05/2012 Document Reviewed: 02/17/2008 ExitCare? 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 Murry. Pt denies any kidney stones. Pt denies any prostate or UTI in the past. Ptdoes have a FH of liver Cancer. IPPS score 4. Pt states that he had a CT done but it was of head 06/2020, he was Dx with nuno palsy. Pt does not have a PSA done. Pt was not able to give a UA at this time, have given him water. Dysuria: no pain or burning Incomplete bladder emptying: he thinks he is Hematuria: denies any blood in urine Frequency: normal Urgency: mild sx Nocturia: 1x Stream: average stream, no hesitation, no intermittent stream, not really straining Post void dripping: rare Wearing pads/ Depends: _ Urge incontinence: intermittent Stress incontinence: none Incontinence without Sensory Awareness: none Abdominal pain: none History of Present Illness Reviewed referral and new pt. forms. There have been no associated fever, chills, flank pain or blood in the urine. Pt. denies any pain/burning with urination at this time. Review of Systems PHQ Score Initial Depression Screen Score: 0 ROS - Provider Constitutional: denies weight loss, denies hot flashes. Eyes: denies eye problems. Gastrointestinal: denies nausea, denies vomiting. Cardiovascular: denies chest pain or angina. Integumentary: no dryness Musculoskeletal: denies musculoskeletal symptoms. ENMT: denies otolaryngeal symptoms. Respiratory: no shortness of breath. Heme/Lymph: denies easy bleeding tendency, denies easy bruising tendency. Psychiatric: no confusion, no anxiety. Genitourinary: denies dysuria, denies hematuria, denies discharge, denies urinary frequency, deniesurinary hesitancy, denies nocturia, denies incontinence, denies genital sores, denies decreased libido, and denies erectile dysfunction. Physical Exam Vitals & Measurements HR: 69(Peripheral) RR: 18 BP: 174/78 HT: 180.0 cm HT: 180 cm WT: 109.0 kg WT: 109 kg BMI: 33.64 General Appearance: alert, no distress, well nourished, well developed male. Head: normocephalic . Eyes: normal orbit and globe. ENMT: normal examination of external ears. Chest: Lungs CTA, respirations non labored. Cardiovascular: regular rate and rhythm. Abdomen: soft, non distended, no tenderness, no mass or organomegaly, no hernia. Genitourinary: normal scrotum, normal testes, normal urethra, normal epididymis, normal vas deferens/spermatic cord. Today's exam, rt. inguinal hernia. Flank Pain: none. Bladder: nonpalpable. Penis: normal shaft, normal glans. Prostate: normal prostate, estimated weight 25 gms, no hard nodule observed. Lymph Nodes: unremarkable palpation of the cervical area. Skin: warm, dry, no bruising. Psychiatric: cooperative, affect appropriate for age, normal judgement, euthymic mood. Assessment/Plan 1. Inguinal hernia (K40.90: Unilateral inguinal hernia, without obstruction or gangrene, not specified as recurrent) CT done 05/30/2019, rt. indirect inguinal hernia containing urinary bladder and fat. I advised pt. to see general surgery for repair. Pt. states that this is not bothersome at this time. All questions/concerns were discussed. Pt. to call the office if heencounters any issues prior. Pt. acknowledgesunderstanding. 2. BPH with urinary obstruction (N40.1: Benign prostatic hyperplasia with lower urinary tract symptoms) Pt. is not on any BPH meds. at this time and is doing well overall w/ his urination w/ no bothersome symptoms. IDALIA today - 25gms, no hard nodules. Ordering PSA. I have reviewed the previous health record information and history for this pt. from Dr. Mccracken. Follow-up With When Contact Information JOSEPHINE HIGH, Jonh Blackburn, URL [address] [place] [address]- [phone] Additional Instructions: prn Patient Education Benign Prostatic Hyperplasia I, Ana Paula Hendrix , personally scribed for Dr. Mccracken on 11/08/2020 11:16:39. . Documentation recorded by the scribe, Ana Paula Hendrix, accurately reflects the services(s) I performed and decisions made by me. Authenticated by Dr. Mccracken on 11/08/2020 11:18:24. Problem List/Past Medical History Ongoing Colon cancer Diabetes mellitus type 2 Hypertension Lymph edema Obesity, Class II, BMI 35-39.9, no comorbidity Peripheral vascular insufficiency Historical No qualifying data Procedure/Surgical History Cataract. Medications atorvastatin 40 mg Tab, Oral, Daily losartan 100 mg Tab, Oral, Daily metformin 1000 mg oral tablet, Oral, BID metoprolol 25 mg ER Tab, Oral, Daily Allergies No Known Allergies Social History Tobacco Former smoker, quit more than 30 days ago Tobacco Use:., 11/08/2020 Family History Liver cancer: Father.[facility] HospitalComment on above:Result Comment: Electronically Signed By: Jonh MCCRACKEN MD\.br\Date and Time Signed: 11/08/20 11:18 EDT\.br\Electronically Co-Signed By: Ana Paula Hendrix MA\.br\Date and Time Co-Signed: 11/08/2110:16 EDT Encounters Encounter DateEncounter TypeCare ProviderFacilityStart: 04-26-2025 End: 60-37-2475srseiktuoxXKEPQYJU Jesus WINCHESTERNot AvailableStart: 04-26-2025 End: 27-93-9506Zkiskc flowsSalovidioemily Jesus Sindymary DO Work Phone: [facility] EyeStart: 04-26-2025 End: 86-37-7967Inqxxb flowsSaltorres Lee Ranulfo DO Work Phone: [facility] EyeStart: 11-21-2022 End: 58-16-6443vlkuqlrdhsUFQLPA DIAB .Facility:E7Rvwet: 03-31-2022 End: 03-21-6947kbmqjijeebLBRUON H FAWWADFacility:S6Letno: 02-11-2022 End: 68-80-9700ayhsgxtsnvTCTJDZ H FAWWADFacility:H1 Procedures DateProcedureProcedure DetailPerforming ClinicianStart: 15-02-3715Tsj bmtry prtl coher intrfrmtry io lens pwr Iliana Winchester DO Work Phone: Start: 04-26-2025 End: 67-55-9349Blknc medical xm&eval compre new pt 1/> vstAge-related nuclear cataract of left eyeAlexisemily Jesus Winchester DO Work Phone: comment on above:Age-related nuclear cataract of left eye (Primary Dx); Right posterior capsular opacification Plan of Treatment DateCare ActivityDetailAuthorStart: 04-26-2025 End: 92-51-1416Rqynjea encounter nlnnglsci58/30/2025 3:00 PM EDT Office Visit [facility] [address] [place] [address] Lyly Winchester DO [address] [place] [address] ArrivedSouth Sunflower County Hospital EyeComment on above:ArrivedStart: 22-00-2949XYWUN-19 Vaccine ( season)COVID-19 Vaccine ( season)[facility] HealthcareStart: 69-22-0850RJpB/Tdap/Td Vaccines (1 - Tdap)DTaP/Tdap/Td Vaccines (1 - Tdap)[facility] HealthcareStart: 24-18-7309Fpebgytlq for malignant neoplasm of [facility]SE[facility] Healthcare Payers DatePayer CategoryPayerPolicy [id number] MEDICARE ADVANTAGE [id number] [id number] [id number] Social History DateTypeDetailFacilityTobacco smoking status NHISTobacco smoking consumption unknownNOIL HealthcareStart: 59-71-6576Fec assigned at birthNot on [facility] HealthcareStart: 56-71-1258XqmXhzaZDXT HealthcareGender identityNot on [facility] HealthcareStart: 19-17-5954Dhrcpxj smoking status NHISNever smoked tobaccoSEVIER VALLEY HOSPITAL HealthcareStart: 61-19-7614Wfydiuc use and exposureSmokeless tobacco non-user [facility] History of Present illness Narrative 04-26-2025 Note Date & NnuhSbbePorwhobp77-42-7659 History of Present illness Narrative* Lyly Winchester DO - 04/26/2025 3:00 PM EDT Images from the original note were not included. Subjective Patient ID: Leeroy He is a 69 y.o. male. Chief Complaint Cataract HPI Cataract In left eye. Associated symptoms include blurred vision, glare and starburst. Severity is moderate.Onset was gradual. Frequency is constant. Context: distance vision, near vision, computer work, driving and night driving. Since onset it is gradually worsening. Affected activities include night driving, watching TV and daily activities. Treatments tried include artificial tears and glasses. Respon se to treatment was no improvement. Comments Pt presents for cataract evaluation , referrred by Dr. Sanabria. Pt states he uses bifocal glasses ( not full-time) for reading mostly. Pt states he had cataract extraction (CE) in right eye (OD) 30+ years ago but does not remember who the surgeon was, reports vision is blurred in left eye (OS) with cloudiness, does not like nighttime driving. No Flomax No Latex No pacemakers/difib Last edited by Lyly Winchester DO on 04/26/2025 3:14 PM. Current Outpatient Medications (Ophthalmic Agents) Medication Sig Dispense Refill Rotveblqxnt-Soolommm-Ldwufbfkk 1-0.5-0.075 % solution Administer 1 drop into affected eye(s) in themorning and 1 drop at noon and 1 drop in the evening and 1 drop before bedtime. 10 mL 1 No current facility-administered medications for this visit. (Ophthalmic Agents) Current Outpatient Medications (Other) Medication Sig Dispense Refill losartan (Cozaar) 50 MG tablet 1 (one) time each day at the same time metFORMIN (Glucophage) 1000 MG tablet 1 tablet with a meal Orally twice daily; Duration: 90 days atorvastatin (Lipitor) 40 MG tablet TAKE 1 TABLET BY MOUTH EVERY DAY AT BEDTIME FOR 90 DAYS hydroCHLOROthiazide (HYDRODiuril) 25 MG tablet Take 25 mg by mouth in the morning. metoprolol tartrate (Lopressor) 25 MG tablet TAKE 1 TABLET BY MOUTH TWICE A DAY WITH FOOD FOR 90 DAYS No current facility-administered medications for this visit. (Other) Medical History[1] Allergies[2] Review of Systems Constitutional: Negative. HENT: Negative. Eyes: Negative. Respiratory: Negative. Cardiovascular: Negative. Gastrointestinal: Negative. Genitourinary: Negative. Musculoskeletal: Negative. Skin: Negative. Neurological: Negative. Psychiatric/Behavioral: Negative. Hematological: Negative. Endocrine: Negative. Allergic/Immunologic: Negative. Objective Base Eye Exam Visual Acuity (Snellen - Linear) Right Left Dist cc 20/20 -2 20/70 -2 Correction: Glasses Tonometry (Applanation, 3:16 PM) Right Left Pressure 16 16 Pupils Pupils Right PERRL Left PERRL Visual Nolan Left Right Full Full Extraocular Movement Right Left Full, Ortho Full, Ortho Neuro/Psych Oriented x3: Yes Dilation Both eyes: 1.0% Mydriacyl @ 3:04 PM Additional Tests Keratometry K1 [place] K2 [place] Right 44.00 180 44.00 90 Left 44.00 100 44.25 10 Glare Testing High Right 20/80 Left 20/400 Slit Lamp and Fundus Exam External Exam Right Left External Rosacea Rosacea Slit Lamp Exam Right Left Lids/Lashes Blepharitis, Dermatochalasis - upper lid Blepharitis, Dermatochalasis - upper lid Conjunctiva/Sclera White and quiet White and quiet Cornea Decreased tear film Decreased tear film Anterior Chamber Deep and quiet Deep and quiet Iris Round and reactive Round and reactive Lens Posterior chamber intraocular lens, 2+ Posterior capsular opacification 3+ Nuclear sclerosis, 2+ Cortical cataract Anterior Vitreous Normal Normal Fundus Exam Right Left Disc Normal Normal Macula Normal Normal Vessels Normal Normal Periphery Normal Normal Refraction Wearing Rx Sphere Cylinder [place] Add Right +0.25 -1.00 060 +2.50 Left +0.75 -0.50 118 +2.25 Age: 2+ Manifest Refraction Sphere Cylinder [place] Right +0.25 -0.50 084 Left +0.75 -0.50 180 Final Rx Sphere Cylinder [place] Dist VA Right +0.25 -0.50 085 20/20 Left +0.75 -0.50 180 20/60 Expiration Date: 04/26/2026 Assessment/Plan Age-related nuclear cataract of left eye - Visually Significant Cataract, OU: I discussed the risks, benefits, alternatives, and expectations of cataract surgery. A complete ophthalmic exam was performed and it was determined that the cataracts were a primary source of vision decline, affecting activities of daily living, necessitating removal. Limited vision post-surgery may occur with pre-existing conditions affecting other areas of the eye or the brain was explained and the patient displayed an understanding. The overall objective is to improve ADLs, not eliminate glasses or restore vision to 20/20. Tests were reviewed - the different lens options were explained including the shn-ng-rtxqtj fees for any upgrades. Intraocular lens (IOL) selection may be altered either prior to or during the procedure based on the doctor's discretion including reverting to a traditional intraocular lens (IOL). They understood that there will exist the potential of glasses prescription need post surgery for near, distance or possibly both. The patient stated a full understanding and a desire to proceed with the procedure. The patient received cataract measurements and had any additional questions answered. - A complete exam was performed including a physical exam: General: AAOx3 and NAD, Lungs: Clear, Heart: RRR, Abdomen: S/NT/ND, Extremities: no pitting edema. - Coordination of care will be shared with Dr. Sanabria. Cataract Surgery for OS will take place - 05/15. Right posterior capsular opacification - PCO OD: (Posterior Capsule Opacification) Can be observed without intervention if PCO is not visually significant. Nd:YAG laser capsulotomy may be considered if impairment of vision rises to a level that dose not meet the patient's functional needs or interferes with activities of daily living. Risks, benefits and alternatives to the procedure will be reviewed. If the patient has undergone Nd:YAG laser capsulotomy, they are to notify their director skills promptly if they have a significant change in symptoms, such as flashes of light (photopsia), an increase in floaters, loss of visual field or decrease in visual acuity. [1] Past Medical History: Diagnosis Date Diabetes mellitus (HCC) Hypercholesteremia Hypertension [2] No Known Allergies documented in this encounterNOIL Healthcare Evaluation note Note Date & TypeNoteFacilityEvaluation note* Diagnosis Age-related nuclear cataract of left eye- Primary Right posterior capsular opacification Unspecified after-cataract documented in this encounter [facility] Summary Purpose Family History No Family History Records FoundNo Family History Records FoundNo Family History Records Found Advance Directives No Advanced Directives Records FoundNo Advanced Directives Records FoundNo Advanced Directives Records Found Additional Source Comments (unrecognized sect ion and content) No Status Records FoundNo Status Records FoundNo Status Records Found INFORMATION SOURCE (unrecogn ized section and content) DATE CREATED AUTHOR 11/25/2020 [facility] DATE CREATED AUTHOR AUTHOR'S ORGANIZ ATION 12/04/2022 [facility] DATE CREATED AUTHOR AUTHOR'S ORGANIZ ATION 04/28/2025 [facility] EPIC Reason for Visit (unrecogniz ed section and content) ReasonCommentsCataract FOR RECORDS PERTAINING TO PATIENTS WHO ARE OR HAVE BEEN ENROLLED IN A CHEMICAL DEPENDENCY/SUBSTANCEABUSE PROGRAM, SOME INFORMATION MAY BE OMITTED. This clinical summary was aggregated from multiple sources. Caution should be exercised in using it in the provision of clinical care. This summary normalizes information from multiple sources, and as a consequence, information in this document may materially change the coding, format and clinical context of patient data. In addition, data may be omitted in some cases. CLINICAL DECISIONS SHOULD BE BASED ON THE PRIMARY CLINICAL RECORDS. [email or web address] [facility]. provides no warranty or guarantee of the accuracy or completeness of information in this document.
[2025-06-01 08:24] LABS: Hematocrit 46.2 % (42.0-54.0); Hemoglobin 16.2 g/dL (14.0-18.0); Immature Granulocytes Abs Auto 0.02 10^3/uL (0.00-0.03); Immature Granulocytes Pct Auto 0.2 % (0.0-0.5); Lymphocytes Absolute Auto 1.8 10^3/uL (1.2-3.8); Mean Corpuscular HGB Conc 35.1 g/dL (29.9-35.2); Mean Corpuscular Hemoglobin 32.0 pg (25.9-34.0); Mean Corpuscular Volume 91.1 fL (80.0-94.0); Platelet Count 198 10^3/uL (150-450); Red Blood Count 5.07 10^6/uL (4.70-6.10); White Blood Count 8.3 10^3/uL (4.0-11.0)
[2025-06-01 10:26] LABS: Alanine Aminotransferase 21 U/L (16-63); Albumin Globulin Ratio 1.1; Albumin Level 3.7 g/dL (3.4-5.0); Alkaline Phosphatase 93 U/L (46-116); Anion Gap 11.9; Aspartate Amino Transferase 18 U/L (15-37); Blood Urea Nitrogen 14.0 mg/dL (7.0-18.0); Calcium 9.4 mg/dL (8.5-10.1); Carbon Dioxide 32.2 mmol/L (21.0-32.0); Chloride 99 mmol/L (98-107); Cholesterol 113 mg/dL (<=200); Estimated GFR (African America >60 (>=60 mL/min/1.73m^2); Estimated GFR (Non-African Ame 51 (>=60 mL/min/1.73m^2); Free T3 2.80 pg/mL (2.18-3.98); Globulin 3.4 g/dL; Glucose 114 mg/dL (74-106); HDL Cholesterol 41 mg/dL (40-60); Potassium 4.1 mmol/L (3.5-5.1); Sodium 139 mmol/L (136-145); Thyroid Stimulating Hormone 1.729 uIU/mL (0.358-3.740); Total Protein 7.1 g/dL (6.4-8.2); Triglycerides 88 mg/dL (<=150); Uric Acid 6.2 mg/dL (3.5-7.2); VLDL CHOLESTEROL 17.6 mg/dL
[2025-06-02 08:09] LABS: PSA, Free 1.50 ng/mL
== END 2025-06-01 08:05 | disposition home or self-care (01) ==
LOC: LAB 08:06
PROVIDERS: PCP Family Medicine; Visit Provider Family Medicine
DX: E78.5 Hyperlipidemia, unspecified (principal); I10 Essential (primary) hypertension; E11.9 Type 2 diabetes mellitus without complications; R60.9 Edema, unspecified; M10.9 Gout, unspecified; E03.9 Hypothyroidism, unspecified; Z12.5 Encounter for screening for malignant neoplasm of prostate; D50.9 Iron deficiency anemia, unspecified; R97.20 Elevated prostate specific antigen [PSA]
CPT/HCPCS: 36415; 80053; 80061; 83036; 84153; 84154; 84436; 84443; 84481; 84550; 85025; G0103